=== PATIENT | male | born 1960 | race Caucasian/White ===

== ENCOUNTER 2017-04-30 06:19 | Emergency (ER) | payer OTHER ==
[2017-04-30 07:29] LABS: HEMOGLOBIN 13.6 gm/dl (14.0-17.5); RED BLOOD COUNT 4.96 M/UL (4.20-5.50); WHITE BLOOD COUNT 6.5 K/UL (4.5-11.0)
[2017-04-30 07:44] LABS: BUN/CREATININE RATIO 18 (0-10)
== END 2017-04-30 10:55 | disposition home or self-care (01) ==
LOC: ER1 06:19
PROVIDERS: Physician Assistant
DX: R19.7 Diarrhea, unspecified (principal); R11.2 Nausea with vomiting, unspecified; E11.65 Type 2 diabetes mellitus with hyperglycemia; R12 Heartburn; Z87.442 Personal history of urinary calculi
CPT/HCPCS: 36415; 80053; 81001; 82550; 82553; 82962; 83690; 83874; 84484; 85025; 93005; 96361; 96374; 96375; 99284; C9113; J2405; J7030